=== PATIENT | male | born 1995 | race Two or more races ===

== ENCOUNTER 2025-04-22 11:00 | Emergency (ER) | payer SELFPAY ==
[~2025-04-22] VITALS: Ht 167.6 cm; Wt 94.0 kg
[2025-04-22 11:36] VITALS: BP 124/76; PULSE 92; RESP 17; TEMP 97.9; O2SAT 96
--- NOTE | 2025-04-22 11:43 | ED.PDOC ---
History of Present Illness HPI Comments 30 year old male presents to the ED for the c/c of Left Wrist pain that radiates up the forearm. Possible cause: he smashed his Thumb in a tool box 3x months ago and has progressively gotten worse with no alleviating factors at this time. Aggravated with movement. Therapies tried: none. Denies fevers chills night sweats nausea vomiting redness around the hand Denies previous surgeries to the shoulder or significant injury Numbness/tingling down the arm Denies changes, shortness of breath Chief Complaint: Upper Extremity Time Seen by MD: 11:36 Primary Care Provider: RAZ Reviewed Notes: Nurses Notes, Medications, Allergies Allergies: Coded Allergies: NO KNOWN ALLERGIES (Unverified , 04/22/25) Information Source: Patient Mode of Arrival: Ambulatory Severity: Moderate Timing: Months Duration: Since onset Prehospital treatment: None Past Medical History PAST MEDICAL HISTORY: Denies Surgical History: Denies all surgeries Family History Family History: Reviewed,noncontributory to illness, No family hx of Cancer, No family hx of DM, No family hx of Heart yanira, No family hx of HTN, No family hx ofKidney yanira, No family hx of Liver yanira, No family hx of Lung yanira, No family hx of Stroke Social History Smoker: Non-Smoker Alcohol: Denies ETOH Use Drugs: Denies Drug Use Lives In: Home Constitutional: denies: chills, diaphoresis, fatigue, fever, malaise, sweats, weakness, others EENTM: denies: blurred vision, double vision, ear bleeding, ear discharge, ear drainage, ear pain, ear ringing, eye pain, eye redness, hearing loss, mouth pain, mouth swelling, nasal discharge, nose bleeding, nose congestion, nose pain, photophobia, tearing, throat pain, throat swelling, voice changes, others Respiratory: denies: cough, hemoptysis, orthopnea, SOB at rest, shortness of breath, SOB with excertion, stridor, wheezing, others Cardiovascular: denies: chest pain, dizzy spells, diaphoresis, Dyspnea on exertion, edema, irregular heart beat, left arm pain, lightheadedness, palpitations, PND, syncope, others Gastrointestinal: denies: abdomen distended, abdominal pain, blood streaked bowels, constipated, diarrhea, dysphagia, difficulty swallowing, hematemesis, melena, nausea, poor appetite, poor fluid intake, rectal bleeding, rectal pain, vomiting, others Genitourinary: denies: burning, dysuria, flank pain, frequency, hematuria, incontinence, penile discharge, penile sore, pain, testicle pain, testicle swelling, urgency, others Neurological: denies: dizziness, fainting, headache, left sided numbness, left sided weakness, numbness, paresthesia, pre-existing deficit, right sided numbness, right sided weakness, seizure, speech problems, tingling, tremors, weakness, others Musculoskeletal: reports: others (Left wrist pain); denies: back pain, gout, joint pain, joint swelling, muscle pain, muscle stiffness, neck pain Integumetry: denies: bruises, change in color, change in hair/nails, dryness, laceration, lesions, lumps, rash, wounds, others Allergic/Immunocompromised: denies: Difficulty Healing, Frequent Infections, Hives, Itching, others Hematologic/Lymphatic: denies: anemia, blood clots, easy bleeding, easy bruising, swollen glands, others Endocrine: denies: excessive hunger, excessive sweating, excessive thirst, excessive urination, flushing, intolerance to cold, intolerance to heat, unexplained weight gain, unexplained weight loss, others Psychiatric: denies: anxiety, bipolar disorder, depression, hopeless, panic disorder, schizophrenia, sleepless, suicidal, others All Other Systems: Reviewed and Negative Physical Exam General Appearance: No Apparent Distress, Normal, Obese HEENT: Normal ENT Inspection, Pharynx Normal, TMs Normal Neck: Full Range of Motion, Non-Tender, Normal Respiratory: Chest Non-Tender, Lungs Clear, No Respiratory Distress, Normal Eloise ath Sounds Cardiovascular: No Edema, No JVD, Normal Peripheral Pulses Breast Exam: Deferred Gastrointestinal: Non Tender, No Pulsatile Mass, Soft Genitalia: Deferred Pelvic: Deferred Rectal: Deferred Extremities: No calf tenderness, Normal range of motion, Non-tender, No pedal edema Musculoskeletal : Location: Left Extremity Location: Wrist (No abnomality to the right wrist, No erythma, soft tissue swelling, Ecymosis, limited movement due to pain, jonnathan test was positive, Cap refil was less than 3 second, dax sensation was intact) Apperance: Normal Neurologic: Alert, No Motor Deficits, Normal Mood Cerebellar Function: Normal Reflexes: Normal Skin: Dry, Normal Color, Warm Lymphatic: No Adenopathy Was a procedure done? Was a procedure done?: Yes Sedation Sedation?: No Other Procedure Procedure Wrist Injection Indication De Quervain Syndrome Anesthetic 2cc Lidocaine w/o Epi w/ 20 mg of kenalog Prep Alcohol Swabs, 20mg Kenalog, 22 Gauge 1 1/2 inch needle Success yes Informed consent obtained: Yes Risks, benefits, and alternati: Yes Differential Dx Considerations may include: wrist sprain, fracture, dislocation X-Ray, Labs, Meds, VS Vital Signs Date Time Temp Pulse Resp B/P (MAP) Pulse Ox O2 Delivery O2 Flow Rate FiO2 04/22/25 11:36 92 17 96 Room Air 04/22/25 11:36 97.9 92 17 124/76 (92) 96 97.9 04/22/25 11:16 97.9 92 17 124/76 (92) 96 97.9 PATIENT: SELIN BATES ACCT: [id number] UNIT: [id number] : 1995 LOC: ER ROOM / BED: / AGE / SEX: 30 / M ADM STATUS: REG ER SERVICE 1141 ORDERING PHYSICIAN: LAYLA VOSS NP PROCEDURE(s): LWRI - L WRIST 3+ VIEW XRAY REASON: R/o fracture ORDER NUMBER(s): [id number], ACCESSION NUMBER(s): [id number] CLINICAL INDICATION: Trauma; R/o fracture TECHNIQUE: 3 radiographic views of the left wrist were obtained. Comparison: None FINDINGS/IMPRESSION: There is no evidence of acute fracture or dislocation. Chronic ulnar styloid process fracture. The visualized joint space is well maintained. The alignment is anatomical. There is no radiopaque foreign body. X-Ray, Labs, Meds, VS Comment 30 year old male presents to the ED for the c/c of Left Wrist pain that radiates down the thumb. Patient arrives alert and oriented, ABC's intact, afebrile, vital signs stable, saturating well in room air Diagnostic imaging ordered by me and results interpreted by radiology : FINDINGS/IMPRESSION: There is no evidence of acute fracture or dislocation. Chronic ulnar styloid process fracture. The visualized joint space is well maintained. The alignment is anatomical. There is no radiopaque foreign body Splint thumb and wrist Instruct patient to remove splint briefly each day to perform [id number] exercises NSAIDs for 10-14 days On reevaluation, patient had symptomatic improvement. Patient is stable for discharge at this time. External notes reviewed. Test results and diagnostic imaging interpreted. All diagnostic findings, discharge care, education and instructions provided Follow-up with PCP in 2 to 3 days Patient verbalized understanding and agreed to treatment plan Vital signs stable, afebrile, no acute distress noted Patient ambulatory with strong steady gait Advised to return precautions for any new or worsening symptoms, return to ER immediately for re-evaluation Additional MDM Review of External, Non-ED records: External records reviewed. Discussion with independent historian (EMS, family) history obtained from the patient/parents (if applicable) at bedside Chronic conditions affecting care: None Social determinants of health affecting care: None Consideration of admission (observation or admission): I considered escalation of care to admission for this patient, however given the reassuring workup, the patient is safe for outpatient management. Discussion with the Radiology: No Tests considered but not performed: Prescription medication considered but not given: Time of 1ST Reevaluation: 12:07 Reevaluation 1ST: Unchanged Time of 2ND Reevaluation: 13:28 Reevaluation 2ND: Improved Patient Education/Counseling: Diagnosis, Treatment Family Education/Counseling: No Family Present Departure 1 Departure Time of Disposition: 13:28 Impression: Primary Impression: Tenosynovitis, de Quervain Disposition: 01 HOME / SELF CARE / HOMELESS Condition: Stable e-Prescriptions Ibuprofen Micronized (Ibuprofen) 800 Mg Tab 800 MG PO TID for 10 Days, #30 TAB 0 Refills Prov: LAYLA VOSS NP 04/22/25 Critical Care Note Critical Care Time?: No Stability Stability form required: No Heart Score Heart Score: Heart Score Response (Comments) Value History N/A 0 EKG N/A 0 Age N/A 0 Risk Factors N/A 0 Troponin N/A 0 Total 0 I personally scribed for LAYLA VOSS NP ([employer]) on 04/22/25 at 11:43. Electronically submitted by Selin Danielle ([email or web address]). I personally scribed for LAYLA VOSS NP ([employer]) on 04/22/25 at 11:46. Electronically submitted by Selin Danielle ([employer]). I personally scribed for LAYLA VOSS DIRECTOR OF CONTENT AND PROGRAMMING ([employer]) on 04/22/25 at 12:37. Electronically submitted by Selin Danielle ([employer]). I personally scribed for LAYLA VOSS DIRECTOR OF CONTENT AND PROGRAMMING ([employer]) on 04/22/25 at 12:48. Electronically submitted by Selin Danielle ([employer]). LAYLA VOSS NP Apr 22, 2025 11:43
--- NOTE | 2025-04-22 12:20 | DVH ---
CLINICAL INDICATION: Trauma; R/o fracture TECHNIQUE: 3 radiographic views of the left wrist were obtained. Comparison: None FINDINGS/IMPRESSION: There is no evidence of acute fracture or dislocation. Chronic ulnar styloid process fracture. The visualized joint space is well maintained. The alignment is anatomical. There is no radiopaque foreign body.
[2025-04-22] MEDS: TRIAMCINOLONE 40MG/ML 1ML VIAL IX ONE (13:11)
[2025-04-22] MEDS ORDERED: IBUP-1455 PO (13:29)
== END 2025-04-22 13:35 | disposition home or self-care (01) ==
LOC: ER 11:00
DX: M65.4 Radial styloid tenosynovitis [de Quervain] (principal)
CPT/HCPCS: 20550; 73110; 99284; J3301